=== PATIENT | male | born 1940 | race Caucasian/White ===

== ENCOUNTER 2018-05-03 09:40 | Day surgery (SDC) | payer OTHER ==
[2018-04-29 16:32] VITALS: BMI 36.5
[2018-05-03 10:20] VITALS: BP 152/74; PULSE 86; TEMP 98.4
== END 2018-05-03 13:00 | disposition home or self-care (01) ==
LOC: JASU-SURG 09:40
PROVIDERS: ATTEND Urology
PROC: 3E013GC Introduction of Other Therapeutic Substance into Subcutaneous Tissue, Percutaneous Approach (ICD-10-PCS; principal; 2018-05-03)
DX: Z53.8 Procedure and treatment not carried out for other reasons (principal)
CPT/HCPCS: 82962

== ENCOUNTER 2018-05-10 07:14 | Day surgery (SDC) | payer OTHER ==
[2018-05-07 18:42] VITALS: BMI 36.5
[2018-05-10] MEDS ORDERED: oxyCODONE HCL 5 MG TABLET PO PRN (11:22)
[2018-05-10] MEDS ORDERED: ACETAMINOPHEN 500 MG TABLET (FP) PO PRN (11:22)
[2018-05-10] MEDS ORDERED: ONDANSETRON 4 MG/2 ML VIAL IVPUSH PRN (11:22)
[2018-05-10] MEDS ORDERED: LACTATED RINGERS SOLUTION 1,000 ML IV SCH (11:30)
[2018-05-10] MEDS ORDERED: PROPOFOL 20 ML ONE ×3 (12:04→12:54)
[2018-05-10] MEDS ORDERED: MIDAZOLAM HCL 2 MG/2 ML SINGLE DOSE VIAL ONE (12:04)
[2018-05-10] MEDS ORDERED: SUCCINYLCHOLINE CHLORIDE 200 MG/10 ML VIAL ONE (12:28)
[2018-05-10] MEDS ORDERED: ROCURONIUM BROMIDE 50 MG/5 ML VIAL ONE (12:34)
[2018-05-10] MEDS ORDERED: SEVOFLURANE 250 ML BTL ONE (13:24)
[2018-05-10] MEDS ORDERED: GLYCOPYRROLATE 0.2 MG/1 ML VIAL ONE (13:47)
[2018-05-10] MEDS ORDERED: NEOSTIGMINE METHYLSULFATE 0.5 MG/1 ML - 10 ML MDV ONE (13:47)
--- NOTE | 2018-05-10 13:58 | OP ---
Operative Note - Note: Operative Date: 05/10/18 Pre-Operative Diagnosis: bladder tumor/gross hematuria Operation: transurethral resction and vaporization of bladder tumor/cystoscopy and bladder biopsies Findings: large bulky bladder tumors involving left hemitrigone/left lateral wall/ posterior wall with total area of 8x10cm Post-Operative Diagnosis: Same as Pre-op Surgeon: Dell Aragon Anesthesia: General Specimens Removed: bladder tumor Estimated Blood Loss (mls): 30 Drains & Tubes with Location: 22fr carranza Operative Report Dictated: Yes
[2018-05-10 19:13] VITALS: TEMP 98
[2018-05-10 19:25] VITALS: BP 160/80; PULSE 100
--- NOTE | 2018-05-10 22:56 | OP ---
DATE OF OPERATION: 05/10/2018 PREOPERATIVE DIAGNOSIS: Bladder tumor with gross hematuria. POSTOPERATIVE DIAGNOSIS: Bladder tumor with gross hematuria. PROCEDURE: Transurethral resection and vaporization of bladder tumor measuring 8 cm x 10 cm in total surface area, with cystoscopy and bladder biopsies. ATTENDING: Catalina Dean MD ANESTHESIA: General. DESCRIPTION OF OPERATION: Patient was brought in the operating room, placed in supine position on the operating room table. The patient has a history of a bladder tumor involving the left lateral wall, left steve-trigone, and posterior wall. The tumor appeared bulky. The patient continues with recurrent episodes of gross hematuria. The patient understands all risks and benefits to the procedure including the risk of bladder perforation and . The patient accepts these risks. The patient was brought in the operating room, placed in supine position on the operating room table. General anesthesia was administered. Patient was placed in dorsal lithotomy position. Cystoscopy was performed. Bulky tumors involving the left lateral wall, posterior wall, and left steve-trigone were noted. The left ureteral orifice was identified. A wire was passed to the kidney in order to help facilitate identification of the left ureteral orifice. At this point, a resectoscope was utilized, and resection of the bladder tumors was performed at the bladder base and lateral wall, followed by the posterior wall. Excellent hemostasis was attained. Bladder biopsies were then performed, and these specimens were sent off from the left lateral wall, posterior wall, and trigone. Vaporization of the deep muscle layer was then performed in the resected areas. Excellent hemostasis was attained. There were no complications noted. There was no evidence of bladder perforation. The left ureteral orifice was unharmed. At this point, the instruments were removed, and the patient had a 22-Albanian catheter placed to straight drainage. There were no complications noted. The patient tolerated the procedure very well. CATALINA DEAN M.D. [id number]
--- NOTE | 2018-05-13 14:03 | PATH ---
Surgical Pathology Report Patient Name: JACK HAINES [facility]. Rec. #: [id number] /Age/Gender: 1940 (Age: 77) / M Account: [id number] Location: [facility] SURGICAL Taken: 05/10/2018 Received: 05/11/2018 Reported: 05/13/2018 Physicians: Dell Aragon Specimen(s) Received A: BLADDER TUMOR B: LEFT LATERAL WALL C: POSTERIOR WALL D: TRIGONE Clinical History Neoplasm of bladder Final Diagnosis A. BLADDER TUMOR, TRANSURETHRAL RESECTION/VAPORIZATION OF THE TUMOR: HIGH GRADE PAPILLARY UROTHELIAL CARCINOMA. NO DEFINITIVE INVASION IDENTIFIED. NO MUSCULARIS PROPRIA IDENTIFIED. NO FLAT CARCINOMA IN SITU (CIS) IDENTIFIED. FOCAL CRUSH AND CAUTERY ARTIFACT PRESENT. SEE COMMENT. B. LATERAL WALL, LEFT, BIOPSY: PREDOMINANTLY DENUDED UROTHELIAL MUCOSA, FIBROCONNECTIVE AND VASCULAR TISSUE WITH CHRONIC INFLAMMATION. MUSCULARIS PROPRIA IDENTIFIED. MARKED CRUSH AND CAUTERY ARTIFACT PRESENT. SEE COMMENT. C. POSTERIOR WALL, BIOPSY: PREDOMINANTLY DENUDED UROTHELIAL MUCOSA, FIBROCONNECTIVE AND VASCULAR TISSUE WITH CHRONIC INFLAMMATION. MUSCULARIS PROPRIA IDENTIFIED. MARKED CRUSH AND CAUTERY ARTIFACT PRESENT. SEE COMMENT. D. TRIGONE, BIOPSY: PREDOMINANTLY DENUDED UROTHELIAL MUCOSA, FIBROCONNECTIVE AND VASCULAR TISSUE WITH CHRONIC INFLAMMATION. MUSCULARIS PROPRIA IDENTIFIED. MARKED CRUSH AND CAUTERY ARTIFACT PRESENT. SEE COMMENT. Comment: Deeper levels have been examined. Immunohistochemical stains for AE1/3 (parts B, C, D) utilized to evaluate this case. Case seen interdepartmentally. Findings relayed to Estefanía from Dr. Aragon's office. Electronically Signed Sherri Wayne M.D. Gross Description A. Received in formalin labeled "bladder tumor," is a 3.8 x 2.7 x 0.6 cm aggregate of jeronimo, friable soft tissue fragments admixed with blood clot. The formalin is filtered and the specimen is entirely submitted in 4 cassettes. B. Received in formalin labeled "left lateral wall," are 2 jeronimo soft tissue fragments measuring 0.5 and 0.7 cm in greatest dimension. The specimens are submitted in toto in one cassette. C. Received in formalin labeled "posterior wall," are 3 jeronimo soft tissue fragments ranging from 0.5-0.9 cm in greatest dimension. The specimens are submitted in toto in one cassette. D. Received in formalin labeled "trigone," is a 1.0 cm in greatest dimension jeronimo soft tissue fragment. The specimen is submitted in toto in one cassette. 05/11/201805/11/2018
== END 2018-05-10 19:15 | disposition home or self-care (01) ==
LOC: JASU-SURG 07:14
PROVIDERS: ATTEND Urology
PROC: 0T5B8ZZ Destruction of Bladder, Via Natural or Artificial Opening Endoscopic (ICD-10-PCS; principal; 2018-05-10 12:00)
DX: C67.9 Malignant neoplasm of bladder, unspecified (principal); R31.0 Gross hematuria
CPT/HCPCS: 88305-TC; 88307-TC; 88342-TC; 94760